=== PATIENT | male | born 1945 | race Caucasian/White ===

== ENCOUNTER 2018-08-22 11:28 | Outpatient (CLI) | payer MEDICARE ==
[2018-08-22] MEDS ORDERED: METF500T17 PO (12:27)
[2018-08-22] MEDS ORDERED: CARV6.252 PO (12:27)
[2018-08-22] MEDS ORDERED: ATOR40TA78 PO (12:27)
[2018-08-22] MEDS ORDERED: SPIR25TA5 PO (12:27)
[2018-08-22] MEDS ORDERED: LOSA100T14 PO (12:27)
[2018-08-22] MEDS ORDERED: [UNRECOGNIZED DRUG - OTHER] PO (12:27)
[2018-08-22] MEDS ORDERED: ASPI81TA45 PO (12:27)
[2018-08-22] MEDS ORDERED: FINA5TAB4 PO (12:27)
[2018-08-22] MEDS ORDERED: ISOS30TA8 PO (12:27)
[2018-08-22] MEDS ORDERED: TAMS-11 PO (12:27)
[2018-08-22 12:46] LABS: ALBUMIN 3.6 g/dL (3.4-5.0); ANION GAP 9 mmol/L (5-15); CHLORIDE 105 mmol/L (98-107)
[2018-08-22 12:50] LABS: ALANINE AMINOTRANSFERASE 33 U/L (12-78); ALKALINE PHOSPHATASE 17 U/L (45-117); BILIRUBIN,TOTAL 0.9 mg/dL (0.2-1.0); CREATININE 1.52 mg/dL (0.7-1.3); TOTAL PROTEIN 7.3 g/dL (6.4-8.2)
[2018-08-22 12:53] LABS: BASOPHILS # (AUTO) 0.02 x10^3/uL (0-0.1); BASOPHILS % (AUTO) 0 % (0-1); EOSINOPHILS # (AUTO) 0.11 x10^3/uL (0-0.4); EOSINOPHILS % (AUTO) 2 % (1-7); LYMPHOCYTES # (AUTO) 2.15 x10^3/uL (1-3.4); LYMPHOCYTES % (AUTO) 32 % (22-44); MD NO; MEAN CORPUSCULAR HEMOGLOBIN 29.7 pg (27.5-34.5); MEAN CORPUSCULAR HGB CONC 33.2 g/dL (33.2-36.2); MEAN CORPUSCULAR VOLUME 89.6 fL (81-97); MEAN PLATELET VOLUME 6.6 fL (7.4-10.4); MONOCYTES # (AUTO) 0.49 x10^3/uL (0.2-0.8); MONOCYTES % (AUTO) 7 % (2-9); NEUTROPHILS # (AUTO) 3.93 x10^3/uL (1.8-6.8); NEUTROPHILS % (AUTO) 59 % (42-75); PLATELET COUNT 294 x10^3/uL (130-400); RED BLOOD COUNT 4.07 x10^6/uL (4.38-5.82); RED CELL DISTRIBUTION WIDTH 16.3 % (9.4-14.8)
== END 2018-08-22 23:59 | disposition home or self-care (01) ==
LOC: STAR 11:28
PROVIDERS: ATTEND Nurse Practitioner Family
DX: T84.84XA Pain due to internal orthopedic prosthetic devices, implants and grafts, initial encounter (principal); T84.032A Mechanical loosening of internal right knee prosthetic joint, initial encounter; M70.71 Other bursitis of hip, right hip; M25.551 Pain in right hip; R94.31 Abnormal electrocardiogram [ECG] [EKG]; Z96.641 Presence of right artificial hip joint
CPT/HCPCS: 36415; 80053; 85025; 93005

== ENCOUNTER 2018-09-06 05:15 | Inpatient (IN) | payer MEDICARE ==
[~2018-09-06] VITALS: Ht 182.9 cm; Wt 119.9 kg
[~2018-09-06 05:15] MED LIST: ASPI81TA45 PO; ATOR40TA78 PO; CARV6.252 PO; FINA5TAB4 PO; ISOS30TA8 PO; LOSA100T14 PO; METF500T17 PO; SPIR25TA5 PO; TAMS-11 PO; [UNRECOGNIZED DRUG - OTHER] PO
[2018-09-06] MEDS ORDERED: LACTATED RINGERS 1,000 ML IV SCH (06:03)
[2018-09-06] MEDS ORDERED: VANCOMYCIN 2,000 MG in SODIUM CHLORIDE 0.9% 500 ML IV ONE (06:30)
[2018-09-06] MEDS ORDERED: ZOLPIDEM 5MG TABLET PO PRN (06:30)
[2018-09-06] MEDS ORDERED: ONDANSETRON 4 MG TABLET PO PRN (06:30)
[2018-09-06] MEDS ORDERED: MAGNESIUM HYDROXIDE 8%, 30ML UDC PO PRN (06:30)
[2018-09-06] MEDS ORDERED: ONDANSETRON 2MG/ML, 2ML IV PRN ×2 (06:30→07:00)
[2018-09-06] MEDS ORDERED: SENNA/DOCUSATE TABLET PO PRN (06:30)
[2018-09-06] MEDS ORDERED: ACETAMINOPHEN 500 MG TABLET PO ONE (06:30)
[2018-09-06] MEDS ORDERED: SCOPOLAMINE PATCH, 1.5MG PATCH.TD72 TD ONE (06:30)
[2018-09-06] MEDS ORDERED: ACETAMINOPHEN 650 MG/20.3 ML UDC PO PRN (06:30)
[2018-09-06] MEDS ORDERED: VANCOMYCIN PER PHARMACY MC PRN (06:30)
[2018-09-06] MEDS ORDERED: HYDROcodone/APAP 5/325 TABLET PO PRN (06:30)
[2018-09-06] MEDS ORDERED: GABAPENTIN 300 MG CAPSULE PO ONE (06:30)
[2018-09-06] MEDS ORDERED: DIPHENHYDRAMINE 25 MG CAPSULE PO PRN (06:30)
[2018-09-06] MEDS ORDERED: BISACODYL 10 MG SUPP PR PRN (06:30)
[2018-09-06 06:36] VITALS: BP 138/77
[2018-09-06] MEDS ORDERED: FENTANYL PF 250 MCG/5ML ONE (06:37)
[2018-09-06] MEDS ORDERED: MIDAZOLAM 1 MG/ML, 2ML ONE (06:37)
[2018-09-06] MEDS ORDERED: TRANEXAMIC ACID 100 MG/ML, 10ML ONE ×2 (06:42)
[2018-09-06] MEDS ORDERED: KETOROLAC 60 MG/2 ML ONE (06:42)
[2018-09-06] MEDS ORDERED: VANCOMYCIN 1,000 MG ONE (06:42)
[2018-09-06] MEDS ORDERED: ROPIvacaine/PF 0.5%, 30 ML ONE (06:42)
[2018-09-06] MEDS ORDERED: SODIUM CHLORIDE 0.9% 50 ML ONE (06:43)
[2018-09-06] MEDS ORDERED: EPINEPHRINE 1 MG/ML, 1ML ONE (06:43)
[2018-09-06] MEDS ORDERED: hydrALAzine 20 MG/ML, 1ML IV PRN (07:00)
[2018-09-06] MEDS ORDERED: EPHEDRINE 50 MG/ML, 1ML IVPush PRN (07:00)
[2018-09-06] MEDS ORDERED: ALBUTEROL/IPRATROPIUM 2.5MG/0.5MG, 3 ML NPPB PRN (07:00)
[2018-09-06] MEDS ORDERED: MEPERIDINE/PF 25MG/0.5ML IVPush PRN (07:00)
[2018-09-06] MEDS ORDERED: OXYcodone 5 MG/5 ML ORAL.SOL UDC PO PRN (07:00)
[2018-09-06] MEDS ORDERED: FENTANYL PF 100 MCG/2ML IV PRN (07:00)
[2018-09-06] MEDS ORDERED: LORazepam 2 MG/ML, 1ML IVPush PRN (07:00)
[2018-09-06] MEDS ORDERED: LABETALOL 5MG/ML, 20ML IV PRN (07:00)
[2018-09-06] MEDS: ISOSORBIDE MONONITRATE ER 30 MG TABLET PO SCH (09:00)
[2018-09-06] MEDS: FINASTERIDE 5 MG TABLET PO SCH (09:00)
[2018-09-06] MEDS: LOSARTAN 50MG TABLET PO SCH (09:00)
[2018-09-06] MEDS: CARVEDILOL 6.25 MG TABLET PO SCH ×2 (09:00→20:46)
[2018-09-06] MEDS: TAMSULOSIN 0.4 MG CAP.ER.24H PO SCH (09:00)
[2018-09-06] MEDS: SPIRONOLACTONE 25 MG TABLET PO SCH (09:00)
[2018-09-06] MEDS: DOCUSATE 100 MG CAPSULE PO SCH ×2 (09:00→20:46)
[2018-09-06] MEDS ORDERED: OXYcodone 5 MG/5 ML ORAL.SOL UDC ONE (09:02)
[2018-09-06] MEDS ORDERED: HYDROmorphone 2 MG/ML, 1ML ONE ×2 (09:02→09:59)
[2018-09-06] MEDS: HYDROmorphone 2 MG/ML, 1ML IVPush PRN ×6 (09:08→10:14)
[2018-09-06] MEDS ORDERED: TRANEXAMIC ACID 1,000 MG in SODIUM CHLORIDE 0.9% 100 ML IV STA (10:00)
[2018-09-06] MEDS ORDERED: hydrALAzine 20 MG/ML, 1ML ONE (10:06)
[2018-09-06] MEDS: INSULIN LISPRO 100 UNITS/ML, PEN SQ-INSULIN SCH ×3 (11:00→20:45)
[2018-09-06] MEDS ORDERED: ASPIRIN MC SCH (12:00)
[2018-09-06] MEDS ORDERED: CELECOXIB MC SCH (12:00)
[2018-09-06] MEDS: CEFAZOLIN PMX 2GM/50ML 50 ML IVPB SCH ×2 (12:19→20:46)
[2018-09-06] MEDS: NS + 20MEQ KCL 1,000 ML IV SCH (12:19)
[2018-09-06] MEDS: CELECOXIB MC SCH ×2 (12:30→20:30)
[2018-09-06 14:00] VITALS: BP 119/73
[2018-09-06] MEDS ORDERED: PROPOFOL 10 MG/ML, 20ML ONE (14:51)
[2018-09-06] MEDS ORDERED: EPHEDRINE 50 MG/ML, 1ML ONE (14:51)
[2018-09-06] MEDS ORDERED: DEXAMETHASONE 4 MG/ML, 1ML ONE (14:51)
[2018-09-06] MEDS ORDERED: PHENYLEPHRINE 10 MG/ML ONE (14:51)
[2018-09-06] MEDS ORDERED: ROCURONIUM 10MG/ML,5ML ONE (14:51)
[2018-09-06] MEDS ORDERED: GLYCOPYRROLATE 0.2MG/1ML, 5ML ONE (14:51)
[2018-09-06] MEDS ORDERED: NEOSTIGMINE 1 MG/ML, 10ML ONE (14:51)
[2018-09-06] MEDS ORDERED: ONDANSETRON 2MG/ML, 2ML ONE (14:51)
[2018-09-06] MEDS: OXYcodone IR 5MG TABLET PO PRN ×2 (15:29→20:45)
[2018-09-06] MEDS: metFORMIN 500 MG TABLET PO SCH (17:03)
[2018-09-06] MEDS: ASPIRIN 81 MG TABLET EC PO SCH (18:13)
[2018-09-06 19:08] VITALS: BP 122/76
[2018-09-06] MEDS ORDERED: ATORVASTATIN 40 MG TABLET PO SCH (21:00)
[2018-09-07] MEDS: NS + 20MEQ KCL 1,000 ML IV SCH
[2018-09-07 00:33] VITALS: BP 128/70
[2018-09-07] MEDS: CELECOXIB MC SCH (04:30)
[2018-09-07] MEDS ORDERED: DEXAMETHASONE 4 MG/ML, 1ML IVPush SCH (06:00)
[2018-09-07] MEDS: ASPIRIN 81 MG TABLET EC PO SCH (06:17)
[2018-09-07] MEDS: INSULIN LISPRO 100 UNITS/ML, PEN SQ-INSULIN SCH (06:24)
[2018-09-07 07:25] VITALS: BP 129/64
[2018-09-07] MEDS: LOSARTAN 50MG TABLET PO SCH (07:53)
[2018-09-07] MEDS: ISOSORBIDE MONONITRATE ER 30 MG TABLET PO SCH (07:53)
[2018-09-07] MEDS: SPIRONOLACTONE 25 MG TABLET PO SCH (07:53)
[2018-09-07] MEDS: DOCUSATE 100 MG CAPSULE PO SCH (07:53)
[2018-09-07] MEDS: TAMSULOSIN 0.4 MG CAP.ER.24H PO SCH (07:53)
[2018-09-07] MEDS: metFORMIN 500 MG TABLET PO SCH (07:54)
[2018-09-07] MEDS: CARVEDILOL 6.25 MG TABLET PO SCH (07:54)
[2018-09-07] MEDS: FINASTERIDE 5 MG TABLET PO SCH (07:54)
[2018-09-07] MEDS ORDERED: OXYC5CAP2 PO (08:21)
[2018-09-07] MEDS ORDERED: TRAM50TA2 PO (08:21)
[2018-09-07] MEDS ORDERED: MELO7.5T31 PO (08:21)
[2018-09-07] MEDS ORDERED: PHARMACOKINETIC MONITORING MC PRN (08:30)
[2018-09-07] MEDS ORDERED: PHARMACOKINETIC CONSULTATION MC ONE (08:30)
[2018-09-07] MEDS ORDERED: VANCOMYCIN 2,000 MG in SODIUM CHLORIDE 0.9% 500 ML IV SCH (09:00)
== END 2018-09-07 11:50 | disposition home or self-care (01) | DRG 467 ==
LOC: ORIP 05:15 → 4NOR 11:06 → DCLOUNGE 09-07 11:33
PROVIDERS: ADMIT Orthopaedic Surgery; ATTEND Orthopaedic Surgery
PROC: 0SPA0JZ Removal of Synthetic Substitute from Right Hip Joint, Acetabular Surface, Open Approach (ICD-10-PCS; 2018-09-06)
PROC: 0SRA03A Replacement of Right Hip Joint, Acetabular Surface with Ceramic Synthetic Substitute, Uncemented, Open Approach (ICD-10-PCS; principal; 2018-09-06 07:00)
DX: T84.020A Dislocation of internal right hip prosthesis, initial encounter (principal); R71.0 Precipitous drop in hematocrit; E11.9 Type 2 diabetes mellitus without complications; I10 Essential (primary) hypertension; M81.0 Age-related osteoporosis without current pathological fracture; E78.5 Hyperlipidemia, unspecified; M16.12 Unilateral primary osteoarthritis, left hip; G47.33 Obstructive sleep apnea (adult) (pediatric); I25.10 Atherosclerotic heart disease of native coronary artery without angina pectoris; I25.2 Old myocardial infarction
CPT/HCPCS: 36415; 72170; 82565; 82962; 85014; 85018; 86850; 86900; 88300; C1713; G0378; J0171; J0690; J1100; J1170; J1885; J2250; J2405; J2704; J2710; J2795; J3010; J3370; J3480; C1776; J0360; J1815; J2370; J7040; J7120

== ENCOUNTER 2019-06-17 11:10 | Outpatient (CLI) | payer MEDICARE ==
[~2019-06-17 11:10] MED LIST changes: +MELO7.5T31 PO; +OXYC5CAP2 PO; +TRAM50TA2 PO
[2019-06-17] MEDS ORDERED: LOSA25TA25 PO (11:53)
[2019-06-17] MEDS ORDERED: OXYC-302 PO (11:53)
[2019-06-17 12:16] LABS: BASOPHILS # (AUTO) 0.05 x10^3/uL (0-0.1); BASOPHILS % (AUTO) 1 % (0-1); EOSINOPHILS # (AUTO) 0.13 x10^3/uL (0-0.4); EOSINOPHILS % (AUTO) 2 % (1-7); LYMPHOCYTES # (AUTO) 2.31 x10^3/uL (1-3.4); LYMPHOCYTES % (AUTO) 31 % (22-44); MD NO; MEAN CORPUSCULAR HEMOGLOBIN 29.4 pg (27.5-34.5); MEAN CORPUSCULAR VOLUME 89.1 fL (81-97); MEAN PLATELET VOLUME 6.4 fL (7.4-10.4); MONOCYTES # (AUTO) 0.51 x10^3/uL (0.2-0.8); MONOCYTES % (AUTO) 7 % (2-9); NEUTROPHILS # (AUTO) 4.54 x10^3/uL (1.8-6.8); NEUTROPHILS % (AUTO) 60 % (42-75); PLATELET COUNT 389 x10^3/uL (130-400); RED BLOOD COUNT 4.42 x10^6/uL (4.38-5.82); RED CELL DISTRIBUTION WIDTH 16.9 % (9.4-14.8)
[2019-06-17 12:23] LABS: ALBUMIN 3.7 g/dL (3.4-5.0); ANION GAP 8 mmol/L (5-15); CALCIUM 9.4 mg/dL (8.5-10.1); CHLORIDE 105 mmol/L (98-107)
[2019-06-17 12:37] LABS: ALANINE AMINOTRANSFERASE 25 U/L (12-78); ALKALINE PHOSPHATASE 21 U/L (45-117); BILIRUBIN,TOTAL 0.8 mg/dL (0.2-1.0); TOTAL PROTEIN 7.7 g/dL (6.4-8.2)
== END 2019-06-17 23:59 | disposition home or self-care (01) ==
LOC: STAR 11:10
PROVIDERS: ATTEND Internal Medicine
DX: Z01.818 Encounter for other preprocedural examination (principal)
CPT/HCPCS: 36415; 80053; 85025; 93005

== ENCOUNTER 2019-06-23 09:50 | Day surgery (SDC) | payer MEDICARE ==
[~2019-06-23] VITALS: Ht 182.9 cm; Wt 106.8 kg
[~2019-06-23 09:50] MED LIST changes: +LOSA25TA25 PO; +OXYC-302 PO
[2019-06-23] MEDS ORDERED: APIX5TAB PO (10:25)
[2019-06-23 10:30] VITALS: BP 164/88
[2019-06-23] MEDS ORDERED: PROPOFOL 10 MG/ML, 20ML ONE (12:11)
[2019-06-23] MEDS ORDERED: EPHEDRINE 50 MG/ML, 1ML IM PRN (12:30)
[2019-06-23] MEDS ORDERED: LABETALOL 5MG/ML, 20ML IV PRN (12:30)
[2019-06-23] MEDS ORDERED: EPHEDRINE 50 MG/ML, 1ML IVPush PRN (12:30)
[2019-06-23] MEDS ORDERED: ONDANSETRON 2MG/ML, 2ML IV PRN (12:30)
[2019-06-23] MEDS ORDERED: FENTANYL PF 100 MCG/2ML IV PRN (12:30)
[2019-06-23] MEDS ORDERED: ONDANSETRON ODT 8 MG PO PRN (12:30)
[2019-06-23] MEDS ORDERED: DIAZEPAM 5 MG/ML, 2ML IVPush PRN (12:30)
== END 2019-06-23 14:05 | disposition home or self-care (01) ==
LOC: OUT 09:50
PROVIDERS: ATTEND Internal Medicine
DX: D50.9 Iron deficiency anemia, unspecified (principal); D12.3 Benign neoplasm of transverse colon; K20.9 Esophagitis, unspecified; K22.2 Esophageal obstruction; I10 Essential (primary) hypertension; E11.9 Type 2 diabetes mellitus without complications; Z88.6 Allergy status to analgesic agent; Z88.8 Allergy status to other drugs, medicaments and biological substances
CPT/HCPCS: 43239; 45380; 82962; 88305; J2704